=== PATIENT | male | born 1935 | race Caucasian/White ===

== ENCOUNTER 2018-04-18 09:09 | Inpatient (IN) | payer OTHER ==
[~2018-04-18] VITALS: Ht 175.3 cm; Wt 81.2 kg
[~2018-04-18 09:09] MED LIST: ALLERGY 4-HOUR4 MG PO; ASPIR 8181 MG PO; CARDURA2 MG PO; PROAIR HFA8.5 GM IH; SPIRIVA18 MCG IH
[2018-04-18 09:14] VITALS: BP 126/60
--- NOTE | 2018-04-18 09:22 | NUR ---
PATIENT O2 SAT IN 80'S ON ARRIVAL. PLACE ON 2L NC O2 AT 97%
[2018-04-18] MEDS ORDERED: TOPROL XL25 MG PO (09:23)
[2018-04-18] MEDS ORDERED: LEVAQUIN 750 M750 MG PO (09:24)
[2018-04-18] MEDS ORDERED: ATORVASTATIN CA40 MG PO (09:24)
[2018-04-18 10:01] LABS: HEMATOCRIT 38.6 % (42.0-52.0); HEMOGLOBIN 12.4 gm/dL (14.0-18.0); MCH 29.2 pg (26.0-34.0); MCHC 32.2 g/dL (28.0-37.0); MCV 90.6 fL (80.0-100.0); NUCLEATED RBCS 0 /100WBC; PLATELET COUNT* 513 thou/uL (150-400); RBC 4.26 mil/uL (4.50-6.00); RDW-CV 14.7 % (10.5-14.5); WBC 12.3 thou/uL (4.0-11.0)
[2018-04-18 10:07] LABS: CALCIUM 9.2 mg/dL (8.5-10.1); CREATININE 1.1 mg/dL (0.6-1.3); POTASSIUM 4.3 mmol/L (3.5-5.1)
[2018-04-18 10:11] LABS: ALBUMIN 2.8 g/dL (3.4-5.0); TOTAL BILIRUBIN 0.6 mg/dL (<0.1-1.0); TOTAL PROTEIN 6.8 g/dL (6.4-8.2)
[2018-04-18 10:12] LABS: BE 3.5 mmol/L (-2 to +3); HCO3 27.5 mmol/L (22.0-26.0); PCO2 39.6 mmHg (35.0-45.0)
[2018-04-18 10:14] LABS: PO2 59.4 mmHg (75.0-100.0)
[2018-04-18 10:40] LABS: ABSOLUTE LYMPHOCYTES 1.6 thou/uL (0.8-5.3); ABSOLUTE MONOCYTES 0.1 thou/uL (0.0-1.2); ABSOLUTE NEUTROPHILS 10.6 thou/uL (1.6-8.1)
[2018-04-18 10:42] LABS: PLATELET ESTIMATE INCREASED
[2018-04-18 10:44] LABS: MACROCYTES Occasional; POLYCHROMASIA Occasional
[2018-04-18 10:45] LABS: BURR CELLS Occasional; SCHISTOCYTES Occasional
[2018-04-18 12:50] VITALS: BP 111/60
[2018-04-18 12:54] VITALS: BP 110/56
[2018-04-18] MEDS ORDERED: SYNTHROID75 MCG PO (13:10)
--- NOTE | 2018-04-18 15:39 | NUR ---
PT ADMITTED TO UNIT AROUND 1300 PT IS ALERT AND ORIENTED X 4 PT DENIES PAIN OR SOA ON 2L/NC, PT IS UP AD MILAGROS PT IS NOT A FALL RISK, PT IS SR ON THE MONITOR, PT WENT TO RADIOLOGY FOR CHEST XRAY AND LUNG VQ SCAN, GAVE PT ANTIBIOTICS AND CONFIRMED TIMING OF ZOSYN, PULMONOLGY IS CONSULTED, WILL CONTINUE TO MONITOR
[2018-04-18 16:00] VITALS: BP 113/59
--- NOTE | 2018-04-18 17:10 | EKG ---
[place] [address] ELECTROCARDIOGRAM REPORT Name: RITU DREW Room: [address] IN [facility]#: [id number] Admission: 04/18/18 Attend Phys: Hood Peace, Discharge: Date of : 33 Report #: [id number] THIS REPORT FOR: //name// [facility] ED Test Date: 2018-04-18 Test Time: 12:23:27 Pat Name: RITU MICHELLEELSY Department: Room: Gender: Senior Sales Manager: Fernando BENSON : 1935 Requested By: Vilma Hassan Order Number: [id number] MD: Ramsey Negron Measurements Intervals [place] Rate: 93 P: 68 [place]: 151 QRS: 55 QRSD: 88 T: 34 QT: 356 QTc: 443 Interpretive Statements Sinus rhythm Borderline T wave abnormalities No previous ECG available for comparison Electronically Signed On 04-18-2018 17:10:43 CDT by Ramsey Negron [email or web address] <ELECTRONICALLY SIGNED> By: Ramsey Negron MD, [facility] 04/18/18 1710 22 22 Ramsey Negron MD, [facility] /EPI
[2018-04-18 20:00] VITALS: BP 139/64
[2018-04-19] VITALS: BP 105/54
[2018-04-19 04:00] VITALS: BP 108/60
--- NOTE | 2018-04-19 05:06 | NUR ---
PT ALERT ORIENTED. O2 AT 2 LITERS NC. O2 SAT 93% TELEMETRY SHOWS SR. NS AT 100ML/HR. DENIES PAIN. WILL CONTINUE TO MONITOR.
[2018-04-19 08:00] VITALS: BP 102/49
--- NOTE | 2018-04-19 10:54 | NUR ---
RECEIVED REPORT FROM VERÓNICA NEIL. ASSUMED CARE OF PT AROUND 729. PT A&O X4, FORGETFUL AT TIMES. VSS. O2 SAT 94% ON 2L PER NC. LUNGS WHEEZING IN UPPER LOBES, DIMINISHED IN THE BASES. PT REPORTS THAT HE DOES NOT WEAR OXYGEN AT HOME. [employer] ARCHITECT IN PLACE TRACING SR. AM ASSESSMENT AND VITALS COMPLETED CHARTED. PT DENIES PAIN OR DISCOMFORT SO FAR THIS SHIFT. IV TO RIGHT AC PATENT AND INFUSING ABX. PT EATING AND DRINKING WITHOUT ISSUE. PT INFORMED OF PLAN OF CARE, COMMUNICATES UNDERSTANDING. AT BEDSIDE VISITING. PT CURRENTLY RESTING IN BED WATCHING TV WITH . LOW FALL RISK PRECAUTIONS IN PLACE. CALL LIGHT IS WITHIN REACH, HOURLY ROUNDING PERFORMED. WCTM.
[2018-04-19 11:30] VITALS: BP 94/53
[2018-04-19 16:00] VITALS: BP 89/45
--- NOTE | 2018-04-19 18:12 | NUR ---
VSS. O2 SAT >90% ON 2L PER NC. PT TITRATED TO RA BY RESPIRATORY FOR A TRIAL - PT O2 DROPPED TO 86%, PLACED BACK ON 2L PER NC. RETURNS CLERK REMAINS IN PLACE WITH NO CHANGES THIS SHIFT. PT EATING AND DRINKING WITHOUT ISSUE. PT HAS CONTINUED TO DENY PAIN OR DISCOMFORT THIS SHIFT. SON AT BEDSIDE VISITING. IV TO RIGHT AC INTACT AND INFUSING ABX. PT CURRENTLY SITTING UP IN BED WATCHING THE BALL GAME WITH SON. LOW FALL RISK PRECAUTIONS IN PLACE. CALL LIGHT IS WITHIN REACH. HOURLY ROUNDING PERFORMED. WCTM FOR DURATION OF SHIFT.
[2018-04-19 20:00] VITALS: BP 114/63
[2018-04-20 00:42] VITALS: BP 93/42
--- NOTE | 2018-04-20 01:23 | NUR ---
PT ALERT ORINETED. UP AD MILAGROS IN ROOM. TELEMETRY SHOWS SR. O2 AT 2 LITERS NC. WILL CONTINUE TO MONITOR.
[2018-04-20 04:41] VITALS: BP 82/40
[2018-04-20 04:54] LABS: ABSOLUTE BASOPHILS 0.1 thou/uL (0.0-0.2); ABSOLUTE LYMPHOCYTES 0.6 thou/uL (0.8-5.3); ABSOLUTE MONOCYTES 0.1 thou/uL (0.0-1.2); ABSOLUTE NEUTROPHILS 9.3 thou/uL (1.6-8.1); BASOPHILS 0.9 %; EOSINOPHILS 0.1 %; HEMATOCRIT 34.9 % (42.0-52.0); HEMOGLOBIN 11.4 gm/dL (14.0-18.0); LYMPHOCYTES 5.6 %; MCH 29.7 pg (26.0-34.0); MCHC 32.8 g/dL (28.0-37.0); MCV 90.7 fL (80.0-100.0); MONOCYTES 1.2 %; MPV 9.3 fl. (7.2-11.1); NUCLEATED RBCS 0 /100WBC; PLATELET COUNT* 487 thou/uL (150-400); POLYS 92.2 %; RBC 3.84 mil/uL (4.50-6.00); RDW-CV 14.5 % (10.5-14.5); WBC 10.1 thou/uL (4.0-11.0)
[2018-04-20 05:23] LABS: ALBUMIN 2.5 g/dL (3.4-5.0); CALCIUM 8.6 mg/dL (8.5-10.1); CREATININE 1.2 mg/dL (0.6-1.3); POTASSIUM 5.1 mmol/L (3.5-5.1); TOTAL BILIRUBIN 0.5 mg/dL (<0.1-1.0); TOTAL PROTEIN 5.9 g/dL (6.4-8.2)
[2018-04-20 08:30] VITALS: BP 109/52
[2018-04-20 12:00] VITALS: BP 144/53
--- NOTE | 2018-04-20 16:13 | NUR ---
ASSUMED PT CARE AT 0700 PT IS ALERT AND ORIENTED X 4 PT DENIES PAIN OR SOA ON 2L/NC, PT IS UP WITH SBA PT IS A FALL RISK BED ALARM IS ON, PT IS SR ON THE MONITOR, PT WENT FOR CHEST XRAY AND US BILAT LE THIS AM, PT HAS ANTIBIOTICS RUNNING, WILL CONTINUE TO MONITOR
[2018-04-20 16:35] VITALS: BP 105/56
--- NOTE | 2018-04-20 23:40 | NUR ---
PT ALERT ORIENTED. UP AD MILAGROS IN ROOM. O2 AT 2 LITERS NC. BREATH SOUNDS DIMINISHED. TELEMETRY SHOWS SR. DENIES PAIN. WILL CONTINUE TO MONITOR.
[2018-04-21 00:37] VITALS: BP 95/48
--- NOTE | 2018-04-21 03:39 | NUR ---
PT REMAINS UNCHANGED. TELEMETRY SHOWS SR. WILL CONTINE TO MONITOR.
[2018-04-21 04:02] VITALS: BP 117/67
[2018-04-21 05:19] LABS: HEMATOCRIT 35.5 % (42.0-52.0); HEMOGLOBIN 11.5 gm/dL (14.0-18.0); MCH 29.3 pg (26.0-34.0); MCHC 32.3 g/dL (28.0-37.0); MCV 90.6 fL (80.0-100.0); MPV 8.9 fl. (7.2-11.1); RBC 3.92 mil/uL (4.50-6.00); RDW-CV 14.9 % (10.5-14.5); WBC 14.4 thou/uL (4.0-11.0)
[2018-04-21 05:44] LABS: ALBUMIN 2.4 g/dL (3.4-5.0); CALCIUM 8.4 mg/dL (8.5-10.1); CREATININE 1.2 mg/dL (0.6-1.3); POTASSIUM 4.2 mmol/L (3.5-5.1); TOTAL BILIRUBIN 0.4 mg/dL (<0.1-1.0); TOTAL PROTEIN 6.1 g/dL (6.4-8.2)
[2018-04-21 09:30] VITALS: BP 104/56
[2018-04-21 11:20] VITALS: BP 116/58
[2018-04-21 15:19] VITALS: BP 107/55
--- NOTE | 2018-04-21 15:52 | NUR ---
ASSUMED PT CARE AT 0700 PT IS ALERT AND ORIENTED X 4 PT DENIES PAIN OR SOA ON 2L/NC RT REMOVED O2 CHECKED PT SATS WHICH WERE BELOW 90 REAPPLIED 2L OF O2 PT SATS ABOVE 90, PT IS R ON THE MONITOR, PT ON ANTIBIOTICS NO ADVERSE SIDE EFFECTS NOTED, PT VSS, WILL CONTINUE TO MONITOR
[2018-04-21 20:00] VITALS: BP 107/69
[2018-04-22] VITALS: BP 100/42
[2018-04-22 04:00] VITALS: BP 95/42
--- NOTE | 2018-04-22 05:03 | NUR ---
ASSUMED PT CARE AT !9:15 RPEORT RECEIVED FROM NURSE. PT IS ALERTT, AWAKE ORIENTED x4,CURRENTLY COMPLAINS OF NO PAIN. SINUS RYTHM ON THE MONITOR. ON 2 L NC SATURATION IS 1000%.VITAL SIGNS TAKEN. WITHIN NORMAL LIMIT.SLEPT WAS PROMOTED BY DIM LIGHTS. PT CURRENTLY RESTING IN BED. SHAUN CONTINUE TO MONITOR.
[2018-04-22 08:00] VITALS: BP 118/71
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
--- NOTE | 2018-04-22 10:00 | NUR ---
ASSUMED CARE OF PT AFTER REPORT. PT IS ALERT AND ORIENTED X4. VITAL SIGNS TAKEN RECORDED. PHYSICAL ASSESSMENT COMPLETED AND CHARTED. PT ON 02 VIA NASAL CANNULA AT 2LPM.PT UP ADLIB AT THIS TIME. SR ON CORPORATE CLAIMS EXAMINER. DENIES PAIN OR COMPLAINTS AT THIS TIME. CALL LIGHT WITHIN REACH. WILL CONTINUE TO MONITOR PT.
[2018-04-22 11:40] VITALS: BP 104/51
--- NOTE | 2018-04-22 12:51 | NUR ---
Pt is A&O. Resides at home with his . Independent with ADLs, continues to drive. Pt uses a home nebulizer, no other DME. No hx of HH or SNF. Hx of outpt therapy. Supportive and children. Goal is to return home at [place], no needs anticipated.
--- NOTE | 2018-04-22 17:52 | NUR ---
DISCONTINUED O2 AT 1030. PT O2 SAT IS 91%. CXR DONE REVEALS NO CHANGES FROM THE LAST XRAY. PT TOLERATED WITHOUT 02 FOR THE REMAINING OF THE SHIFT. DENIES ANY PAIN OR DISCOMFORT. SR ON TELE. CALL LIGHT WITHIN REACH. WILL CONTINUE TO MONITOR PT.
[2018-04-22 20:15] VITALS: BP 98/61
[2018-04-22 20:42] LABS: URINE BILIRUBIN NEGATIVE (Negative); URINE BLOOD NEGATIVE (Negative); URINE CLARITY CLEAR; URINE COLOR YELLOW; URINE GLUCOSE-RANDOM NEGATIVE (Negative); URINE KETONES NEGATIVE (Negative); URINE LEUKOCYTES-REFLEX NEGATIVE (Negative); URINE NITRITE-REFLEX NEGATIVE (Negative); URINE PROTEIN NEGATIVE (Negative); URINE UROBILINOGEN 0.2 E.U./dl (0.2-1.0)
[2018-04-23] VITALS: BP 87/42
[2018-04-23 04:34] VITALS: BP 103/63
--- NOTE | 2018-04-23 06:16 | NUR ---
PATIENT RESTED WELL THROUGH THE NIGHT. UP AD MILAGROS IN ROOM. DENIES PAIN OR NEEDS. REFUSING SCD'S. MEDS PER MAR. CALL LIGHT WITHIN REACH, ENCOURAGED TO CALL FOR NEEDS.
[2018-04-23 08:00] VITALS: BP 89/46
--- NOTE | 2018-04-23 11:59 | NUR ---
ASSUMED CARE OF PATIENT AFTER REPORT. PT IS ALERT AND ORIENTED X4. VITAL SIGNS TAKEN AND RECORDED. PHYSICAL ASSESSMENT COMPLETED AND CHARTED. PT ON NASAL CANNULA AT 2 LPM WITH O2 SAT OF 94%.BP IS 89/46. DENIES ANY PAIN, DISCOMFORT OR LIGHT HEADEDNESS. SR ON TELE. BED IN LOW POSITION, CALL LIGHT WITHIN REACH. WILL CONTINUE TO MONITOR PT.
[2018-04-23 12:09] VITALS: BP 107/56
--- NOTE | 2018-04-23 12:24 | NUR ---
Nutrition: Pt seen for nursing risk 2 points. Pt stated he lost about 10# d/t no appetite since his pneumonia or respiratory virus. stated she had to make him eat. He is stable at ~177# now. He stated the food is good here and he is eating well. His appetite is back now. Regular diet. Pt feels better. Alb 2.4, prealb 23.1. Pt nutritionally stable. Consider low risk.
[2018-04-23 14:29] VITALS: BP 107/56
[2018-04-23] MEDS ORDERED: PREDNISONE 10 M10 MG PO ×2 (14:34→14:43)
[2018-04-23] MEDS ORDERED: LEVAQUIN 750 M750 MG PO (14:34)
[2018-04-23] MEDS ORDERED: FLORASTOR250 MG PO (14:41)
--- NOTE | 2018-04-23 14:55 | NUR ---
Pt discharging to home today, and will need home o2. Faxed referral to Jazlyn at [facility], she will deliver tank to the room. in room and will transport home.
[2018-04-23] MEDS ORDERED: DUONEB 2.5-0.5 M3 ML INH (15:00)
[2018-04-23] MEDS ORDERED: ALBUTEROL2.5 MG/31 INH (15:02)
[2018-04-23 15:15] VITALS: BP 107/56
== END 2018-04-23 15:46 | disposition home or self-care (01) | DRG 177 ==
LOC: M.ERS 09:09 → M.TBA-ER 11:36 → M.2W 11:36
PROVIDERS: Internal Medicine Critical Care Medicine; Personal Emergency Response Attendant; ADMIT Family Medicine
DX: J69.0 Pneumonitis due to inhalation of food and vomit (principal); J96.01 Acute respiratory failure with hypoxia; J44.1 Chronic obstructive pulmonary disease with (acute) exacerbation; J44.0 Chronic obstructive pulmonary disease with (acute) lower respiratory infection; E44.0 Moderate protein-calorie malnutrition; J84.10 Pulmonary fibrosis, unspecified; I25.10 Atherosclerotic heart disease of native coronary artery without angina pectoris; G47.10 Hypersomnia, unspecified; N40.0 Benign prostatic hyperplasia without lower urinary tract symptoms; I10 Essential (primary) hypertension; E78.5 Hyperlipidemia, unspecified; Z90.49 Acquired absence of other specified parts of digestive tract; Z98.41 Cataract extraction status, right eye; Z79.2 Long term (current) use of antibiotics; Z79.82 Long term (current) use of aspirin; Z79.899 Other long term (current) drug therapy; Z72.89 Other problems related to lifestyle; Z68.26 Body mass index [BMI] 26.0-26.9, adult

== ENCOUNTER → 2018-12-26 | Outpatient (CLI) | payer OTHER ==
[~2018-12-26] MED LIST changes: +ALBUTEROL2.5 MG/31 INH; +ATORVASTATIN CA40 MG PO; +DUONEB 2.5-0.5 M3 ML INH; +FLORASTOR250 MG PO; +LEVAQUIN 750 M750 MG PO; +PREDNISONE 10 M10 MG PO; +SYNTHROID75 MCG PO; +TOPROL XL25 MG PO
== END ==
LOC: M.ULTRA 10:09
DX: J98.4 Other disorders of lung (principal); I83.93 Asymptomatic varicose veins of bilateral lower extremities; J90 Pleural effusion, not elsewhere classified; G89.29 Other chronic pain; R06.02 Shortness of breath; R91.8 Other nonspecific abnormal finding of lung field

== ENCOUNTER → 2019-01-02 | Outpatient (CLI) | payer OTHER | LOC: M.LAB 10:12 → M.CT 11:30 | DX: J43.9 Emphysema, unspecified (principal); J90 Pleural effusion, not elsewhere classified; J98.11 Atelectasis; R79.89 Other specified abnormal findings of blood chemistry; J92.9 Pleural plaque without asbestos ==

== ENCOUNTER → 2019-01-12 | Outpatient (CLI) | payer OTHER ==
[2019-01-12 13:21] LABS: HEMATOCRIT 42.5 % (42.0-52.0); MCH 29.7 pg (26.0-34.0); MCHC 32.9 g/dL (28.0-37.0); MCV 90.4 fL (80.0-100.0); MPV 9.2 fl. (7.2-11.1); NUCLEATED RBCS 0 /100WBC; PLATELET COUNT* 239 thou/uL (150-400); RDW-CV 14.3 % (10.5-14.5); WBC 9.8 thou/uL (4.0-11.0)
[2019-01-12 13:24] LABS: PROTIME 10.1 Seconds (9.20-11.50)
[2019-01-12 14:51] LABS: ABSOLUTE BASOPHILS 0.1 thou/uL (0.0-0.2); ABSOLUTE MONOCYTES 0.3 thou/uL (0.0-1.2); ABSOLUTE NEUTROPHILS 8.4 thou/uL (1.6-8.1); ATYPICAL LYMPHS 1 %; PLATELET ESTIMATE ADEQUATE
[2019-01-12 15:52] LABS: BF RBC 18314 /mm3; TOTAL CELL COUNT 2363 /mm3
[2019-01-12 16:03] LABS: CLARITY SLIGHTLY HAZY; COLOR AMBER; TOTAL VOLUME 960 ml
[2019-01-12 16:26] LABS: BF LYMPHOCYTES 96 %; BF MONOCYTES 4 %; BF TISSUE 1 /100 WBC
[2019-01-12 16:27] LABS: BF POLYS 0 %; SOURCE PLEURAL
[2019-01-13 08:07] LABS: BODY FLUID LDH 335 IU/L (()); BODY FLUID PROTEIN 3.3 g/dL (())
[2019-01-13 17:08] LABS: BODY FLUID PH 7.5 (Not Estab.)
[2019-01-14 01:20] LABS: SOURCE PLEURAL
--- NOTE | 2019-01-14 14:07 | PATH ---
[address] [address] PATHOLOGY RPT PROCEDURE Name: RITU DREWIN Room: [facility]#: [id number] Admission: 01/12/19 Date of : 34 Discharge: Report #: [id number] Path Case #: [id number] Note [facility] Accession Number: [id number] TESTS RESULT FLAG UNITS REF RANGE LAB Clinician Provided Cytology Information No. of containers..01 Other (Miscellaneous) Source: LEFT PLEURAL FLUID DIAGNOSIS: 02 LEFT PLEURAL FLUID FEW ATYPICAL CELLS AND BACKGROUND OF REACTIVE MESOTHELIAL CELLS, RBCs, AND PREDOMINANTLY CHRONIC INFLAMMATORY CELLS. THIS INTERPRETATION INCLUDES EVALUATION OF A CELL BLOCK. Signed out by: 02 Jerrell Smalls MD, Pathologist NPI- [id number] Performed by: 01 Messi Orona, Heavy Equipment Plumbing Supervisor ([facility]) Gross description: 01 45ML, RED, CLOUDY /LCS FLAG LEGEND: L-Low Normal,H-High Normal,LL-Alert Low,HH-Alert High <-Panic Low,>-Panic High,A-Abnormal,AA-Critical Abnormal Performed at: [address] [place] [address] Jay Burnett MD, [address] [place] [address] [facility], [place] [address] Jerrell Smalls MD, Specimen Comment: A courtesy copy of this report has been sent to Specimen Comment: [phone]. Specimen Comment: Report sent to Performed at: [address], [place], [place] [id number] MD Jay Burnett MD Phone: [phone]
== END | disposition home or self-care (01) ==
LOC: M.ULTRA 12:35
PROVIDERS: Internal Medicine Critical Care Medicine
DX: J90 Pleural effusion, not elsewhere classified (principal); J44.1 Chronic obstructive pulmonary disease with (acute) exacerbation; J84.10 Pulmonary fibrosis, unspecified; Z95.1 Presence of aortocoronary bypass graft; Z79.899 Other long term (current) drug therapy; Z79.82 Long term (current) use of aspirin

== ENCOUNTER → 2019-01-21 | Outpatient (CLI) | payer OTHER | LOC: M.RAD 08:15 | DX: J90 Pleural effusion, not elsewhere classified (principal); G89.29 Other chronic pain ==

== ENCOUNTER 2019-07-28 09:49 | Inpatient (IN) | payer OTHER ==
[~2019-07-28] VITALS: Ht 175.3 cm; Wt 77.1 kg
[2019-07-28] VITALS (16 sets, daily range): BP systolic 96–177; BP diastolic 48–63
[2019-07-28 10:09] LABS: HEMATOCRIT 38.7 % (42.0-52.0); MCHC 31.1 g/dL (28.0-37.0); MCV 93.3 fL (80.0-100.0); MPV 9.7 fl. (7.2-11.1); NUCLEATED RBCS 0 /100WBC; PLATELET COUNT* 166 thou/uL (150-400); RBC 4.15 mil/uL (4.50-6.00); RDW-CV 15.1 % (10.5-14.5)
[2019-07-28 10:18] LABS: BUN 33 mg/dL (7-18); CALCIUM 9.6 mg/dL (8.5-10.1); CHLORIDE 99 mmol/L (98-107); CREATININE 1.2 mg/dL (0.6-1.3); GLUCOSE 152 mg/dL (70-99); SODIUM 146 mmol/L (136-145)
[2019-07-28 10:18] LABS: BE 18.6 mmol/L (-2 to +3)
[2019-07-28 10:22] LABS: PCO2 150.1 mmHg (35.0-45.0); PO2 53.2 mmHg (75.0-100.0); pH 7.167 (7.340-7.450)
[2019-07-28 10:22] LABS: APTT 27.1 Seconds (25.0-31.3); PROTIME 10.3 Seconds (9.20-11.50)
[2019-07-28 10:28] LABS: CO2 > 45 mmol/L (21-32)
[2019-07-28 10:31] LABS: ALBUMIN 3.5 g/dL (3.4-5.0); ALKALINE PHOSPHATASE 68 U/L (46-116); CK-MB MASS 6.2 ng/mL (<0.5-3.6); NT-PRO BRAIN NAT PEPTIDE 815 pg/mL (<300); SGOT 20 U/L (15-37); SGPT 24 U/L (30-65); TOTAL BILIRUBIN 0.8 mg/dL (<0.1-1.0); TOTAL PROTEIN 7.7 g/dL (6.4-8.2); TROPONIN-I LEVEL <0.06 ng/mL (<0.06)
[2019-07-28 10:34] LABS: ABSOLUTE LYMPHOCYTES 0.2 thou/uL (0.8-5.3); ABSOLUTE MONOCYTES 0.1 thou/uL (0.0-1.2); ABSOLUTE NEUTROPHILS 5.7 thou/uL (1.6-8.1); GIANT PLATELETS OCCASIONAL; PLATELET ESTIMATE ADEQUATE
[2019-07-28 13:44] LABS: BE 13.9 mmol/L (-2 to +3); PO2 73.6 mmHg (75.0-100.0)
[2019-07-28 13:49] LABS: PCO2 92.6 mmHg (35.0-45.0); pH 7.295 (7.340-7.450)
--- NOTE | 2019-07-28 16:23 | EKG ---
[place] [address] ELECTROCARDIOGRAM REPORT Name: RITU DREW Room: [address] ADM IN M.R.#: [id number] Admission: 07/28/19 Attend Phys: Abram Pratt MD Discharge: Date of : 34 Report #: [id number] THIS REPORT FOR: //name// [facility] ED Test Date: 2019-07-28 Test Time: 09:50:34 Pat Name: RITU DREW Department: Room: [facility] Gender: M Courier Driver: : 1935 Requested By: Uche Garcia Order Number: [id number] MD: Salo Singleton Measurements Intervals [facility] Rate: 87 P: 71 NM: 151 QRS: 43 QRSD: 90 T: 24 QT: 351 QTc: 423 Interpretive Statements Sinus arrhythmia Multiple premature complexes, vent & supraven Compared to ECG 04/18/2018 12:23:27 Sinus rhythm no longer present T-wave abnormality no longer present Electronically Signed On 07-28-2019 16:23:44 CDT by Salo Singleton [email or web address] <ELECTRONICALLY SIGNED> By: Salo Singleton MD, [facility] 07/28/19 1623 0950 0950 Salo Singleton MD, [facility] /EPI
[2019-07-29] VITALS (22 sets, daily range): BP systolic 106–139; BP diastolic 48–73
[2019-07-29 01:14] LABS: ABSOLUTE LYMPHOCYTES 0.2 thou/uL (0.8-5.3); ABSOLUTE MONOCYTES 0.1 thou/uL (0.0-1.2); ABSOLUTE NEUTROPHILS 5.5 thou/uL (1.6-8.1); BASOPHILS 0.3 %; HEMATOCRIT 31.5 % (42.0-52.0); HEMOGLOBIN 10.1 gm/dL (14.0-18.0); LYMPHOCYTES 3.9 %; MCH 29.3 pg (26.0-34.0); MCHC 32.2 g/dL (28.0-37.0); MCV 91.1 fL (80.0-100.0); MONOCYTES 1.1 %; MPV 9.8 fl. (7.2-11.1); NUCLEATED RBCS 0 /100WBC; PLATELET COUNT* 157 thou/uL (150-400); POLYS 94.7 %; RBC 3.46 mil/uL (4.50-6.00); RDW-CV 15.1 % (10.5-14.5); WBC 5.9 thou/uL (4.0-11.0)
[2019-07-29 01:17] LABS: CALCIUM 9.3 mg/dL (8.5-10.1)
[2019-07-29 01:18] LABS: POTASSIUM 3.8 mmol/L (3.5-5.1)
[2019-07-29 05:47] LABS: BE 10.8 mmol/L (-2 to +3); PCO2 45.6 mmHg (35.0-45.0); PO2 68.4 mmHg (75.0-100.0); pH 7.504 (7.340-7.450)
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
[2019-07-29 14:17] LABS: BE 9.7 mmol/L (-2 to +3); PO2 69.7 mmHg (75.0-100.0); pH 7.345 (7.340-7.450)
[2019-07-29 14:19] LABS: PCO2 70.5 mmHg (35.0-45.0)
[2019-07-30] VITALS (11 sets, daily range): BP systolic 118–140; BP diastolic 54–93
[2019-07-30 04:04] LABS: ABSOLUTE LYMPHOCYTES 0.2 thou/uL (0.8-5.3); ABSOLUTE MONOCYTES 0.2 thou/uL (0.0-1.2); ABSOLUTE NEUTROPHILS 13.1 thou/uL (1.6-8.1); BASOPHILS 0.1 %; HEMATOCRIT 34.8 % (42.0-52.0); HEMOGLOBIN 10.8 gm/dL (14.0-18.0); LYMPHOCYTES 1.3 %; MCH 28.6 pg (26.0-34.0); MCHC 31.1 g/dL (28.0-37.0); MCV 91.9 fL (80.0-100.0); MONOCYTES 1.3 %; MPV 9.9 fl. (7.2-11.1); NUCLEATED RBCS 0 /100WBC; PLATELET COUNT* 186 thou/uL (150-400); POLYS 97.3 %; RBC 3.78 mil/uL (4.50-6.00); RDW-CV 15.7 % (10.5-14.5); WBC 13.4 thou/uL (4.0-11.0)
[2019-07-30 04:15] LABS: CALCIUM 8.5 mg/dL (8.5-10.1); POTASSIUM 3.8 mmol/L (3.5-5.1); TOTAL BILIRUBIN 0.7 mg/dL (<0.1-1.0); TOTAL PROTEIN 6.5 g/dL (6.4-8.2)
[2019-07-30 15:10] LABS: BODY FLUID LDH 121 IU/L (()); BODY FLUID PROTEIN 2.9 g/dL (())
[2019-07-31 09:27] LABS: BE 7.9 mmol/L (-2 to +3); PO2 61.9 mmHg (75.0-100.0)
[2019-07-31 09:30] LABS: HEMATOCRIT 36.9 % (42.0-52.0); HEMOGLOBIN 11.6 gm/dL (14.0-18.0); MCHC 31.5 g/dL (28.0-37.0); MPV 9.9 fl. (7.2-11.1); NUCLEATED RBCS 0 /100WBC; PLATELET COUNT* 199 thou/uL (150-400); RBC 4.02 mil/uL (4.50-6.00); WBC 13.7 thou/uL (4.0-11.0)
[2019-07-31 09:31] LABS: pH 7.217 (7.340-7.450)
[2019-07-31 09:32] LABS: PCO2 98.1 mmHg (35.0-45.0)
[2019-07-31 09:46] LABS: ALBUMIN 3.1 g/dL (3.4-5.0); CALCIUM 8.5 mg/dL (8.5-10.1); CREATININE 0.8 mg/dL (0.6-1.3); POTASSIUM 4.7 mmol/L (3.5-5.1); TOTAL BILIRUBIN 0.7 mg/dL (<0.1-1.0); TOTAL PROTEIN 6.4 g/dL (6.4-8.2)
[2019-07-31 10:18] LABS: ABSOLUTE LYMPHOCYTES 0.4 thou/uL (0.8-5.3); ABSOLUTE MONOCYTES 0.5 thou/uL (0.0-1.2); ABSOLUTE NEUTROPHILS 12.7 thou/uL (1.6-8.1); PLATELET ESTIMATE ADEQUATE
[2019-07-31 10:19] LABS: HYPOCHROMASIA Occasional
--- NOTE | 2019-07-31 17:06 | PATH ---
[address] [address] PATHOLOGY RPT PROCEDURE Name: RITU DREW Room: [address] IN [facility]#: [id number] Admission: 07/28/19 Date of : 34 Discharge: Report #: [id number] Path Case #: [id number] Note [facility] Accession Number: [id number] TESTS RESULT FLAG UNITS REF RANGE LAB Clinician Provided Cytology Information No. of containers..01 Other (Miscellaneous) Source: LT PLEURAL FLUID DIAGNOSIS: LT PLEURAL FLUID INCONCLUSIVE. RARE, GENERALLY SINGLE ATYPICAL CELLS AND FEW MESOTHELIAL AND CHRONIC INFLAMMATORY CELLS. THIS INTERPRETATION INCLUDES EVALUATION OF A CELL BLOCK. Signed out by: 02 Jerrell Smalls MD, Pathologist NPI- [id number] Performed by: 01 Pati Maria, Potato Chip Sorter ([facility]) Gross description: 01 100 ML, YELLOW, CLUMPY /LCS FLAG LEGEND: L-Low Normal,H-High Normal,LL-Alert Low,HH-Alert High <-Panic Low,>-Panic High,A-Abnormal,AA-Critical Abnormal Performed at: [address] [place] [address] Jay Burnett MD, [address] [place] [address] [address] [place] [address] Jerrell Smalls MD, Specimen Comment: A courtesy copy of this report has been sent to Specimen Comment: [phone], . Specimen Comment: Report sent to DR MAJOR / DR HOLLEY Performed at: [address], [place], [place] [id number] MD Jay Burnett MD Phone: [phone]
[2019-07-31 20:00] VITALS: BP 105/58; BP 112/54
[2019-08-01 04:00] VITALS: BP 114/55
[2019-08-01 08:00] VITALS: BP 115/59
[2019-08-01 20:00] VITALS: BP 105/58
[2019-08-02] VITALS: BP 157/62
[2019-08-02 04:00] VITALS: BP 119/41
[2019-08-02 08:15] VITALS: BP 145/70
[2019-08-02 11:51] LABS: SOURCE PLEURAL
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
== END 2019-08-02 17:20 | DRG 177 ==
LOC: M.ERS 09:49 → M.TBA-ER 10:54 → M.ICU 10:54 → M.2W 08-01 14:26
PROVIDERS: Family Medicine; Internal Medicine Pulmonary Disease; ADMIT Internal Medicine
PROC: 5A09357 Assistance with Respiratory Ventilation, Less than 24 Consecutive Hours, Continuous Positive Airway Pressure (ICD-10-PCS; principal; 2019-07-28)
PROC: 5A09357 Assistance with Respiratory Ventilation, Less than 24 Consecutive Hours, Continuous Positive Airway Pressure (ICD-10-PCS; 2019-07-29)
PROC: 5A09357 Assistance with Respiratory Ventilation, Less than 24 Consecutive Hours, Continuous Positive Airway Pressure (ICD-10-PCS; 2019-07-30)
PROC: 5A09357 Assistance with Respiratory Ventilation, Less than 24 Consecutive Hours, Continuous Positive Airway Pressure (ICD-10-PCS; 2019-07-31)
DX: J69.0 Pneumonitis due to inhalation of food and vomit (principal); J96.02 Acute respiratory failure with hypercapnia; G93.41 Metabolic encephalopathy; J96.01 Acute respiratory failure with hypoxia; Z66 Do not resuscitate; E86.0 Dehydration; Z51.5 Encounter for palliative care; J43.9 Emphysema, unspecified; I25.10 Atherosclerotic heart disease of native coronary artery without angina pectoris; Z79.2 Long term (current) use of antibiotics; Z79.899 Other long term (current) drug therapy; Z82.5 Family history of asthma and other chronic lower respiratory diseases; Z95.5 Presence of coronary angioplasty implant and graft; Z87.891 Personal history of nicotine dependence; Z95.1 Presence of aortocoronary bypass graft